=== PATIENT | female | born 1930 | race Caucasian/White ===

== ENCOUNTER 2017-02-23 04:54 | Inpatient (IN) | payer MEDICARE, BC ==
[~2017-02-23] VITALS: Ht 157.5 cm; Wt 61.2 kg
[2017-02-23] MEDS ORDERED: ACETAMINOPHEN ES 500 MG TABLET PO ONE (05:15)
[2017-02-23] MEDS ORDERED: TDAP DIPH,PERTUSS,TET VAC/PF 0.5 ML DISP.SYRIN IM ONE ×2 (05:15→05:23)
--- NOTE | 2017-02-23 05:18 | NUR ---
PATIENT BROUGHT IN BY RESCUE FROM [facility]. PATIENT STATES SHE WAS TRYING TO USE RESTROOM AT HOME GOT DIZZY AND HIT HEAD ON BATHROOM COUNTER WHICH CAUSE A NOSE BLEED,LAC ON BRIDGE OF NOSE AND SWOLLEN NOSE. PATIENT UPON ARRIVAL A/OX3 BUT SLOW TO RESPONDE.
[2017-02-23] MEDS ORDERED: ACETAMINOPHEN ES 500 MG TABLET ONE (05:23)
--- NOTE | 2017-02-23 05:27 | NUR ---
PATIENT UNABLE TO RECALL MEDICATIONS NAME AND DOSAGES AT THIS TIME
[2017-02-23 05:33] LABS: BASOPHILS % (AUTO) 0.2 % (0.0-2.0); EOSINOPHILS # (AUTO) 0.2 K/uL (0.0-0.7); EOSINOPHILS % (AUTO) 2.8 % (0.0-7.0); HEMATOCRIT 34.6 % (37-47); HEMOGLOBIN 11.3 G/DL (12.0-16.0); MEAN CORPUSCULAR HEMOGLOBIN 29.7 UUG (27.0-31.0); MEAN CORPUSCULAR HGB CONC 33 g/dL (32.0-37.0); MEAN CORPUSCULAR VOLUME 91.5 FL (81.0-99.0); MONOCYTES # (AUTO) 0.5 K/UL (0.1-1.30); MONOCYTES % (AUTO) 8.5 % (0.0-11.0); NEUTROPHILS # (AUTO) 4.1 K/UL (1.8-8.9); NEUTROPHILS % (AUTO) 71.5 % (38.5-71.5); PLATELET COUNT (AUTO) 152 K/UL (150-450); RED BLOOD CELL COUNT(AUTO) 3.79 MIL/UL (4.2-5.4); RED CELL DISTRIBUTION WIDTH 13.8 % (11.5-14.5); WHITE BLOOD COUNT (AUTO) 5.8 K/UL (4.0-11.2)
--- NOTE | 2017-02-23 05:35 | NUR ---
CALLED PATIENT'S SON SEVERAL TIMES TO GET HX AND MEDICATION LIST OF PATIENT BUT UNSUCCESSFUL TO REACH SON. LEFT MESSAGE WITH CALL BACK NUMBER
[2017-02-23 05:37] LABS: CALCIUM 9.2 mg/dL (8.5-10.1); CREATININE 0.9 mg/dL (0.6-1.3); POTASSIUM 4.1 mmol/L (3.5-5.1)
[2017-02-23 05:49] LABS: ALBUMIN 3.4 g/dL (3.4-5.0); BILIRUBIN,DIRECT 0.1 mg/dL (0.0-0.2); BILIRUBIN,TOTAL 0.3 mg/dL (0.2-1.0); TOTAL PROTEIN, SERUM 6.7 g/dL (6.4-8.2)
[2017-02-23 06:42] VITALS: BP 126/73
--- NOTE | 2017-02-23 07:00 | NUR ---
PATIENT RECEIVED IN SAFE AND STABLE CONDITION, NO S/S OF DISTRESS NOTED. C/O OF PAIN OF HER NOSE DUE TO TRAUMA. PATIENT IS A/O X3, ADMISSION ASSESSMENT WERE DONE AND CHARTED. RADIATOR CLEANER ON PLACE. PHOTOS WERE TAKEN AND PLACED ON CHART. WILL CONTINUE MONITORING,
[2017-02-23] MEDS ORDERED: MAGNESIUM HYDROXIDE 30 ML LIQUID UDC PO PRN (07:15)
[2017-02-23] MEDS ORDERED: ONDANSETRON 4 MG/2 ML VIAL IV PRN (07:15)
[2017-02-23] MEDS ORDERED: ZOLPIDEM 5 MG TABLET PO PRN (07:15)
[2017-02-23] MEDS ORDERED: Z GUARD REMEDY PASTE 57 GM TUBE TOP PRN (07:15)
[2017-02-23] MEDS: HYDROCODONE/APAP 5-325MG TABLET PO PRN (08:30)
[2017-02-23 08:53] VITALS: BP 107/58
[2017-02-23 08:55] VITALS: BP_SYST 122; BP_SYST 125; BP_DIAS 62; BP_DIAS 67
--- NOTE | 2017-02-23 09:00 | NUR ---
PATIENT BECOMING ROJAS ANXIOUS AND RESTLESS. C/O OF HAVING A HARD TIME BREATHING WITH HER MOUTH. SHE KEEPS REMOVING HER NOSE CLAMP. MEDICATIONS WAS ADMINISTERED FOR PAIN. SON AUDREY WILL BRING A LIST OF HOME MEDICATIONS. IV WAS PULLED OUT. PATIENT CANNOT STILL STILL, SHE KEEP SITTING AND GETTIG UP EVERY MINUTE, STATING SHE WANTS TO GO HOME. WILL CONTINUE MONITORING.
[2017-02-23] MEDS: IV NS 1000 ML 1,000 ML IV PRN (09:45)
[2017-02-23 11:01] VITALS: BP 107/64
[2017-02-23] MEDS: LORAZEPAM 0.5 MG TABLET PO PRN (14:29)
--- NOTE | 2017-02-23 15:00 | NUR ---
DR MANUEL CALLED FOR NASAL FRACTURE CONSULT, , FOR DR MARTINEZ, FOR PATIENT CHRISTINA RUIZ. SPOKE WITH MARC STATES SHE WILL NOTIFY DR MANUEL OF CONSULT
[2017-02-23 15:08] VITALS: BP 128/78
[2017-02-23] MEDS ORDERED: FURO20TA4 PO (16:14)
[2017-02-23] MEDS ORDERED: SIMV20TA6 PO (16:14)
[2017-02-23] MEDS ORDERED: SPIR25TA4 PO (16:14)
[2017-02-23] MEDS ORDERED: METO-302 PO (16:14)
[2017-02-23] MEDS ORDERED: LEVO50TA8 PO (16:14)
[2017-02-23] MEDS ORDERED: RAMI2.5C PO (16:14)
[2017-02-23] MEDS ORDERED: PARO10TA3 PO (16:14)
[2017-02-23] MEDS ORDERED: METF500T4 PO (16:14)
--- NOTE | 2017-02-23 17:52 | NUR ---
RETURN CALL FROM DR MANUEL STATES HE WILL SEE PATIENT IN THE AM 02/24/17
--- NOTE | 2017-02-23 17:54 | NUR ---
PATIENT CONTINUE BECOMING VERY RESTLESS AND ANXIOUS. CONTINUE REMOVING HER NOSE CLAMP AND BLEEDING. EXTREME CHANGE OF MENTAL STATUS SINCE THE MORNING. DAUGHTER STATED THAT SHE HAVE NEVER BEEN LIKE THAT BEFORE. DR. MARTINEZ AND PA AWARE OF HER CHANGE OF MENTAL STATUS. HE SAID NO TO GIVEN ATIVAN OR NORCO, CAUSE IT COULD MAKE HER STATUS WORST. MEDICATION RECONCILIATION WAS DONE. CBC WILL BE DONE 1900 MD ORDERED. SITTER 1:1 FOR SAFETY. WILL CONTINUE MONITORING.
[2017-02-23] MEDS: METFORMIN HCL 500 MG TABLET PO SCH (18:42)
--- NOTE | 2017-02-23 19:15 | NUR ---
MENTAL STATUS KEEP CHANGING, HALLUCINATIONS NOTED, PATIENT IS TRYING TO GRAB THINGS THAT ARE NOT THERE. SPEAKING INCOHERENTLY AT TIMES. VERY RESTLESS AND SOMETIMES COMBATIVE. HALLIE PEREZ AND DR. MARTINEZ AWARE. REPORT WAS GIVEN TO ABIEL.
[2017-02-23 19:48] LABS: BASOPHILS # (AUTO) 0.2 K/uL (0.0-8.0); BASOPHILS % (AUTO) 3.2 % (0.0-2.0); EOSINOPHILS # (AUTO) 0.1 K/uL (0.0-0.7); EOSINOPHILS % (AUTO) 1.8 % (0.0-7.0); HEMATOCRIT 32.7 % (37-47); HEMOGLOBIN 10.6 G/DL (12.0-16.0); LYMPHOCYTES # (AUTO) 1.1 K/UL (0.8-4.8); LYMPHOCYTES % (AUTO) 16.7 % (20.5-51.5); MEAN CORPUSCULAR HEMOGLOBIN 29.4 UUG (27.0-31.0); MEAN CORPUSCULAR HGB CONC 32 g/dL (32.0-37.0); MEAN CORPUSCULAR VOLUME 91.1 FL (81.0-99.0); MONOCYTES # (AUTO) 0.6 K/UL (0.1-1.30); MONOCYTES % (AUTO) 8.6 % (0.0-11.0); NEUTROPHILS # (AUTO) 4.9 K/UL (1.8-8.9); NEUTROPHILS % (AUTO) 69.7 % (38.5-71.5); PLATELET COUNT (AUTO) 157 K/UL (150-450); RED BLOOD CELL COUNT(AUTO) 3.59 MIL/UL (4.2-5.4); RED CELL DISTRIBUTION WIDTH 13.6 % (11.5-14.5); WHITE BLOOD COUNT (AUTO) 6.9 K/UL (4.0-11.2)
--- NOTE | 2017-02-23 20:00 | NUR ---
patient extremely confused,hostile ,hallucinated,try to hit sitter ,sitting up on aniya chair,continue shouting,anxious wants to go home.unable to start iv at this time, tele a pacing,bruising noted to face,small nose bleed noted,patient keep on removing ice pack and dressing.
[2017-02-23] MEDS ORDERED: PARO10TA26 PO (20:07)
[2017-02-23] MEDS: SIMVASTATIN 20 MG TABLET PO SCH (21:45)
[2017-02-23] MEDS: ACETAMINOPHEN 325 MG TABLET PO PRN (21:45)
[2017-02-23 23:27] VITALS: BP 120/69
--- NOTE | 2017-02-23 23:55 | NUR ---
patient very agitated ,out of control,security at bedside,Dr. Nelson notified, Haldol 0.5 mg im medicated.
[2017-02-24] MEDS ORDERED: HALOPERIDOL LACTATE 5 MG/1 ML VIAL IM ONE (01:00)
[2017-02-24] MEDS: LEVOTHYROXINE SODIUM 50 MCG TABLET PO SCH (06:11)
[2017-02-24 06:41] LABS: ALBUMIN 3.5 g/dL (3.4-5.0); BILIRUBIN,TOTAL 0.8 mg/dL (0.2-1.0); CALCIUM 9.3 mg/dL (8.5-10.1); CREATININE 0.8 mg/dL (0.6-1.3); MAGNESIUM 1.8 mg/dL (1.8-2.4); PHOSPHOROUS 3.1 mg/dL (2.5-4.9); TOTAL PROTEIN, SERUM 6.5 g/dL (6.4-8.2)
[2017-02-24] MEDS: PANTOPRAZOLE SODIUM 40 MG TABLET.DR PO SCH (07:29)
--- NOTE | 2017-02-24 07:45 | NUR ---
Confused, oriented to name, agitated and restless, want to go home, ambulating outside of room with sitter. Redirected and placed on the gerichair. Calm and cooperative after.
[2017-02-24 07:59] LABS: EOSINOPHILS # (AUTO) 0.1 K/uL (0.0-0.7); EOSINOPHILS % (AUTO) 0.8 % (0.0-7.0); HEMATOCRIT 30.8 % (37-47); HEMOGLOBIN 10.2 G/DL (12.0-16.0); LYMPHOCYTES # (AUTO) 1.1 K/UL (0.8-4.8); MEAN CORPUSCULAR HEMOGLOBIN 30.3 UUG (27.0-31.0); MEAN CORPUSCULAR HGB CONC 33 g/dL (32.0-37.0); MONOCYTES # (AUTO) 0.6 K/UL (0.1-1.30); MONOCYTES % (AUTO) 8.7 % (0.0-11.0); NEUTROPHILS # (AUTO) 5.2 K/UL (1.8-8.9); NEUTROPHILS % (AUTO) 75.5 % (38.5-71.5); PLATELET COUNT (AUTO) 141 K/UL (150-450); RED BLOOD CELL COUNT(AUTO) 3.38 MIL/UL (4.2-5.4); RED CELL DISTRIBUTION WIDTH 13.5 % (11.5-14.5); WHITE BLOOD COUNT (AUTO) 7.1 K/UL (4.0-11.2)
[2017-02-24] MEDS: METFORMIN HCL 500 MG TABLET PO SCH ×2 (08:55→17:55)
[2017-02-24] MEDS: RAMIPRIL 2.5 MG CAPSULE PO SCH (08:56)
[2017-02-24] MEDS: SPIRONOLACTONE 25 MG TABLET PO SCH (08:56)
[2017-02-24] MEDS: FUROSEMIDE 20 MG TABLET PO SCH (08:56)
[2017-02-24] MEDS: METOPROLOL SUCCINATE XL 25 MG TAB.SR.24H PO SCH (08:57)
[2017-02-24] MEDS: PAROXETINE HCL 10 MG TABLET PO SCH (08:57)
[2017-02-24] MEDS ORDERED: PAROXETINE HCL 10 MG TABLET PO SCH (09:00)
--- NOTE | 2017-02-24 10:30 | NUR ---
[facility] house initiated, cooperative
[2017-02-24] MEDS: ACETAMINOPHEN 325 MG TABLET PO PRN ×2 (11:05→21:18)
[2017-02-24 11:10] VITALS: BP 106/69
--- NOTE | 2017-02-24 13:00 | NUR ---
Son at bedside, discussed patient's condition and plan of care. Patient calm and cooperative. Restarted saline to right forearm. IVF restarted.
--- NOTE | 2017-02-24 15:34 | NUR ---
Sleeping. son at bedside
[2017-02-24 15:35] VITALS: BP 109/61
--- NOTE | 2017-02-24 18:18 | NUR ---
Sitting on the chair, comfortable. Son and sitter at bedside
[2017-02-24 20:00] VITALS: BP_SYST 117; BP_SYST 120; BP_DIAS 65
--- NOTE | 2017-02-24 20:00 | NUR ---
PATIENT REMAINS CONFUSED BUT MORE CALM AND COOPERATIVE,SON VISITING AT BEDSIDE,VITAL SIGNS STABLE, PATIENT DENIES PAIN, NO DIZZINESS, NO BLEEDING NOTED.AMBULATE WITH ASSISTANCE.
[2017-02-24] MEDS: SIMVASTATIN 20 MG TABLET PO SCH (21:18)
--- NOTE | 2017-02-24 23:20 | NUR ---
PATIENT REQUESTED FOR SLEEPING PILL,STATED I WANT TO SLEEP,FEEL TIRED,AFTER COMFORT MEASURE PROVIDED,PATIENT STILL CAN NOT SLEEP, AMBIEN 5 MG PO ADMIN,ASSISTED PATIENT BACK IN BED, MADE COMFORTABLE.
[2017-02-25] MEDS: LORAZEPAM 0.5 MG TABLET PO PRN ×2 (03:04→17:24)
--- NOTE | 2017-02-25 03:05 | NUR ---
patient has been sleeping then woke up, very agitated, shouting,screaming,hitting,try to walk out of the room,hallucinating,ativan 0.5 mg po admin charged RN notified and agree to give medication as ordered.patient calm down and relax after medication given.continue closely monitor,patient was noted walk with very unsteady gait.
[2017-02-25 04:00] VITALS: BP 127/77
--- NOTE | 2017-02-25 06:32 | NUR ---
patient sleeping est 6 hrs,with period of confused and agitation,reassurance ,needs attended,safety precautions maintained,1:1 sitter .
[2017-02-25] MEDS: PANTOPRAZOLE SODIUM 40 MG TABLET.DR PO SCH (06:39)
[2017-02-25] MEDS: LEVOTHYROXINE SODIUM 50 MCG TABLET PO SCH (06:39)
[2017-02-25] MEDS: IV NS 1000 ML 1,000 ML IV PRN (06:49)
[2017-02-25 07:27] LABS: CALCIUM 9.4 mg/dL (8.5-10.1); POTASSIUM 4.5 mmol/L (3.5-5.1)
[2017-02-25 07:44] LABS: EOSINOPHILS # (AUTO) 0.1 K/uL (0.0-0.7); EOSINOPHILS % (AUTO) 2.2 % (0.0-7.0); HEMATOCRIT 31.8 % (37-47); HEMOGLOBIN 10.6 G/DL (12.0-16.0); LYMPHOCYTES # (AUTO) 1.4 K/UL (0.8-4.8); MEAN CORPUSCULAR HEMOGLOBIN 30.1 UUG (27.0-31.0); MEAN CORPUSCULAR HGB CONC 33 g/dL (32.0-37.0); MONOCYTES # (AUTO) 0.5 K/UL (0.1-1.30); MONOCYTES % (AUTO) 8.2 % (0.0-11.0); NEUTROPHILS # (AUTO) 4.3 K/UL (1.8-8.9); NEUTROPHILS % (AUTO) 67.6 % (38.5-71.5); PLATELET COUNT (AUTO) 152 K/UL (150-450); RED BLOOD CELL COUNT(AUTO) 3.53 MIL/UL (4.2-5.4); RED CELL DISTRIBUTION WIDTH 13.2 % (11.5-14.5); WHITE BLOOD COUNT (AUTO) 6.3 K/UL (4.0-11.2)
[2017-02-25] MEDS: FUROSEMIDE 20 MG TABLET PO SCH (08:52)
[2017-02-25] MEDS: PAROXETINE HCL 10 MG TABLET PO SCH (08:53)
[2017-02-25] MEDS: METFORMIN HCL 500 MG TABLET PO SCH ×2 (08:53→17:24)
[2017-02-25] MEDS: METOPROLOL SUCCINATE XL 25 MG TAB.SR.24H PO SCH (08:54)
[2017-02-25] MEDS: RAMIPRIL 2.5 MG CAPSULE PO SCH (08:55)
[2017-02-25] MEDS: SPIRONOLACTONE 25 MG TABLET PO SCH (08:56)
[2017-02-25 11:01] VITALS: BP 118/73
[2017-02-25] MEDS: HYDROCODONE/APAP 5-325MG TABLET PO PRN ×2 (14:30→20:35)
--- NOTE | 2017-02-25 18:03 | NUR ---
PATIENT HAVE BEEN IN BED AWAKE. NO S/S OF DISTRESS NOTED. C/OF PAIN DURING THE AFTERNOON, MEDICATED ORDERED. FAMILY MEMBERS AT THE BEDSIDE DURING THE DAY. SITTER FOR SAFETY. PATIENT BECOMES ANXIOUS AND NERVOUS AT TIMES PER PRIYA COLLINS REPORT. NO NOSE BLEEDING NOTED. IV STILL INTACT. SAFETY AND COMFORT PROVIDED. WILL CONTINUE MONITORING.
--- NOTE | 2017-02-25 19:16 | NUR ---
REPORT GIVEN TO DARWIN BEEBE.
[2017-02-25 20:00] VITALS: BP_SYST 100; BP_SYST 128; BP_DIAS 64; BP_DIAS 77
--- NOTE | 2017-02-25 20:00 | NUR ---
PATIENT SITTING UP IN CHAIR,APPEARS RELAX,ALERT, ANSWER APPROPRIATE QUESTIONS,COOPERATIVE,SITTER AT BEDSIDE,SAFETY PRECAUTIONS
[2017-02-25] MEDS: SIMVASTATIN 20 MG TABLET PO SCH (20:33)
--- NOTE | 2017-02-25 21:10 | NUR ---
PATIENT AMBULATING ON [address] ,USING WALKER WITH SITTER,NO DIZZINESS NOTED,INCONTINENCE OF STOOL :ACCIDENTLY,PATIENT GOT VERY UPSET,ASSISTED BACK TO BED.
--- NOTE | 2017-02-25 22:00 | NUR ---
patient refused iv fluid,stated she will drink more fluid,and can not sleep with iv going on.
[2017-02-26] MEDS: LORAZEPAM 0.5 MG TABLET PO PRN ×3 (02:35→14:28)
--- NOTE | 2017-02-26 02:35 | NUR ---
patient woke up very confused ,restless,scratching,hitting staffs,[place],c/o feels nausea,Ativan0. 5 mg po given for agitation and Zofran iv admin for nausea.
[2017-02-26 04:21] VITALS: BP 100/82
--- NOTE | 2017-02-26 06:00 | NUR ---
patient sitting up on chair ,drowsy,sitter at bedside for safety,needs attended,UA. sent to lab
[2017-02-26 07:14] LABS: *BILIRUBIN,URIN NEGATIVE (NEGATIVE); *BLOOD, URINE NEGATIVE (NEGATIVE); *CLARITY,URINE SLIGHTLY CLOUDY (CLEAR); *COLOR,URINE YELLOW (YELLOW); *KETONES,URINE NEGATIVE (NEGATIVE); *PROTEIN,URINE NEGATIVE (NEGATIVE); *UROBILINOGEN,URINE 0.2 E.U./dl (NORMAL); LEUKOCYTE ESTERASE ,URINE 2+ (NEGATIVE); NITRITE, URINE NEGATIVE (NEGATIVE); UGLUCOSE NEGATIVE (NEGATIVE)
[2017-02-26 07:25] LABS: BACTERIA,URINE FEW /HPF (NONE SEEN); RBC,URINE 0-3 /HPF (0-3); SQUAMOUS EPITHELIAL CELL,UR FEW /HPF (NONE SEEN)
[2017-02-26] MEDS: PANTOPRAZOLE SODIUM 40 MG TABLET.DR PO SCH (07:31)
[2017-02-26] MEDS: METFORMIN HCL 500 MG TABLET PO SCH ×2 (07:31→16:54)
[2017-02-26] MEDS: LEVOTHYROXINE SODIUM 50 MCG TABLET PO SCH (07:31)
[2017-02-26] MEDS: PAROXETINE HCL 10 MG TABLET PO SCH (08:21)
[2017-02-26] MEDS: SPIRONOLACTONE 25 MG TABLET PO SCH (08:21)
[2017-02-26] MEDS: FUROSEMIDE 20 MG TABLET PO SCH (08:21)
[2017-02-26] MEDS: RAMIPRIL 2.5 MG CAPSULE PO SCH (08:22)
[2017-02-26 08:30] VITALS: BP 104/45
--- NOTE | 2017-02-26 08:30 | NUR ---
AWAKE CONFUSED FORGETFUL UP AMB WELL ON FALL PRECAUTION BED ALARM ON AND SITTER 1:1 AT BEDSIDE CALL LIGHT WITHIN REACH AND INSTRUCTION TO CALL WHEN NEEDED
[2017-02-26] MEDS: HYDROCODONE/APAP 5-325MG TABLET PO PRN ×2 (08:53→14:28)
[2017-02-26] MEDS: METOPROLOL SUCCINATE XL 25 MG TAB.SR.24H PO SCH (10:00)
--- NOTE | 2017-02-26 10:30 | NUR ---
FAMILY AT BEDSIDE CLOSED OBSERVATION NO PAIN AT THIS TIME
[2017-02-26 11:01] LABS: THYROID STIMULATING HORMONE 3.231 mIU/mL (0.358-3.740)
[2017-02-26 12:00] VITALS: BP 116/62
--- NOTE | 2017-02-26 13:00 | NUR ---
EAT LUNCH MOD AMT NO AGITATION AT THIS TIME STATE PAIN MED HELP TO RELIEF PAIN
--- NOTE | 2017-02-26 14:28 | NUR ---
PATIENT WAKE UP AND VERY CONFUSED WANT TO GO HOME MED PRN FOR ANXIETY AND PAIN GIVEN AND PO FLD GIVE AMANDA MOD AMT REFUSED TO EAT LUNCH
--- NOTE | 2017-02-26 14:35 | NUR ---
WALKING IN HALLWAY. VERY CONFUSED, AGITATED & DEMENTED. WANTS TO LEAVE HOSPITAL. ASSISTED TO W/C, & TAKEN TO ROOM. REFUSING TO GET IN BED. COMBATIVE, KICKING, HITTING & SCRATCHING STAFF. PHYSICALLY & VERBALLY ABUSIVE. DR. MARTINEZ CALLED. ORDERS RECEIVED.
--- NOTE | 2017-02-26 14:50 | NUR ---
PATIENT WAS VERY AGITATION ASSIST TO UP IN CHAIR AND DR MARTINEZ WAS CALL FOR MEDICATION AND MESSAGE LEFT
[2017-02-26 15:00] VITALS: BP 109/35
[2017-02-26] MEDS ORDERED: HALOPERIDOL 5 MG TABLET PO ONE (15:15)
--- NOTE | 2017-02-26 15:15 | NUR ---
DR MARTINEZ WAS CALL AGAIN AND PATIENT CONDITION AGITATION INFORM NEW ORDER IN CHART TO GIVE HALDOL
--- NOTE | 2017-02-26 16:30 | NUR ---
PATIENT WAS CALM DOWN ASSIST BACK TO BED RESTING WELL NO RESPIRATORY DISTRESS
--- NOTE | 2017-02-26 17:00 | NUR ---
NO ACUTE DISTRESS OR SOB PAIN UNDER CONTROL SAFETY MEASURE PROVIDED SITTER1:1 AND BED ALARM POWER GENERATION TURBINE ROOM OPERATOR LIGHT WITHIN REACH CLOSED OBSERVATION STABLE CONDITION
--- NOTE | 2017-02-26 18:30 | NUR ---
AWAKE EAT DINNER 30% AT THIS TIME AND THEN START VERY AGITATION TRY TO OOB STATE WANT TO GO OUT DR MARTINEZ WAS CALL AND MED GEODANIELITO GIVEN X1 ORDER CLOSED OBSERVATION ASSIST UP IN CHAIR AT THIS TIME
[2017-02-26] MEDS ORDERED: ZIPRASIDONE MESYLATE 20 MG VIAL IM ONE (18:45)
--- NOTE | 2017-02-26 19:20 | NUR ---
RESTING SITTER 1:1 FOR SAFETY CONTINUE
--- NOTE | 2017-02-26 19:45 | NUR ---
PT RESTING, DOZING OFF, CALM AT THIS TIME, AWAKENS TO NAME. NO ACUTE DISTRESS NOTED. EVEN AND NONLABORED BREATHING OBSERVED. SAFETY MEASURES IN PLACE. 1:1 SITTER FOR SAFETY. WILL CONTINUE TO MONITOR.
[2017-02-26 20:00] VITALS: BP 101/64
[2017-02-26] MEDS: SIMVASTATIN 20 MG TABLET PO SCH (20:08)
[2017-02-27] MEDS: IV NS 1000 ML 1,000 ML IV PRN ×2 (03:14→17:56)
[2017-02-27 04:46] VITALS: BP 110/69
[2017-02-27] MEDS: PANTOPRAZOLE SODIUM 40 MG TABLET.DR PO SCH (06:04)
[2017-02-27] MEDS: LEVOTHYROXINE SODIUM 50 MCG TABLET PO SCH (06:04)
[2017-02-27 07:25] LABS: BASOPHILS # (AUTO) 0.1 K/uL (0.0-8.0); BASOPHILS % (AUTO) 0.9 % (0.0-2.0); EOSINOPHILS # (AUTO) 0.2 K/uL (0.0-0.7); EOSINOPHILS % (AUTO) 2.5 % (0.0-7.0); HEMATOCRIT 32.3 % (37-47); HEMOGLOBIN 10.6 G/DL (12.0-16.0); LYMPHOCYTES # (AUTO) 0.9 K/UL (0.8-4.8); LYMPHOCYTES % (AUTO) 14.9 % (20.5-51.5); MEAN CORPUSCULAR HEMOGLOBIN 29.7 UUG (27.0-31.0); MEAN CORPUSCULAR HGB CONC 33 g/dL (32.0-37.0); MEAN CORPUSCULAR VOLUME 90.7 FL (81.0-99.0); MONOCYTES # (AUTO) 0.5 K/UL (0.1-1.30); MONOCYTES % (AUTO) 8.6 % (0.0-11.0); NEUTROPHILS # (AUTO) 4.7 K/UL (1.8-8.9); NEUTROPHILS % (AUTO) 73.1 % (38.5-71.5); PLATELET COUNT (AUTO) 143 K/UL (150-450); RED BLOOD CELL COUNT(AUTO) 3.56 MIL/UL (4.2-5.4); RED CELL DISTRIBUTION WIDTH 13.9 % (11.5-14.5); WHITE BLOOD COUNT (AUTO) 6.4 K/UL (4.0-11.2)
[2017-02-27 07:29] LABS: CALCIUM 8.8 mg/dL (8.5-10.1); CREATININE 1.1 mg/dL (0.6-1.3); POTASSIUM 4.2 mmol/L (3.5-5.1)
[2017-02-27 08:00] VITALS: BP 120/57
--- NOTE | 2017-02-27 08:00 | NUR ---
AWAKE CONFUSED FORGETFUL BUT COOPERATE AT THIS TIME NO SOB OR PAIN WONG BUT STILL VERY WEAK ON ASPIRATION AND FALL PRECAUTION CALL LIGHT WITHIN REACH AND SITTER 1:1 AT BEDSIDE EAT BREAKFAST MOD AMT CLOSED OBSERVATION
[2017-02-27] MEDS: SPIRONOLACTONE 25 MG TABLET PO SCH (08:19)
[2017-02-27] MEDS: PAROXETINE HCL 10 MG TABLET PO SCH (08:19)
[2017-02-27] MEDS: FUROSEMIDE 20 MG TABLET PO SCH (08:19)
[2017-02-27] MEDS: METOPROLOL SUCCINATE XL 25 MG TAB.SR.24H PO SCH (08:19)
[2017-02-27] MEDS: METFORMIN HCL 500 MG TABLET PO SCH ×2 (08:19→17:34)
[2017-02-27] MEDS: LORAZEPAM 0.5 MG TABLET PO PRN (08:20)
[2017-02-27] MEDS: HYDROCODONE/APAP 5-325MG TABLET PO PRN (08:20)
[2017-02-27] MEDS: RAMIPRIL 2.5 MG CAPSULE PO SCH (08:22)
--- NOTE | 2017-02-27 10:00 | NUR ---
AMB WITH PT IN THE [address] COOPERATE WELL AND DR MARTINEZ SEE PATIENT AND LAB RESULT THIS AM NEW ORDER IN CHART FAMILY AT BEDSIDE ,PATIENT WAS CALM NO AGITATION NO PAIN
--- NOTE | 2017-02-27 14:00 | NUR ---
[facility] BECAUSE FROM RECREATION WORKER PATIENT DOES NOT HAVE FOREST EXAMINER AT BEDSIDE TODAY AT SNF FAMILY WAS AWARE
--- NOTE | 2017-02-27 14:30 | NUR ---
DR GONZALEZ,A SEE PATIENT REGARDING PYCH CONSULT AND NEW MED ORDER
--- NOTE | 2017-02-27 14:47 | NUR ---
The patient will be discharged today to the [facility] [ ; [address] [place] [id number]] via [facility]. His son, Keith [ ], requested for the placement and arranged with [facility] a caregiver to be with her from 3:00 p.m. to 11:00 p.m. when she sundowns. Alexsandra from [facility], confirmed that they will admit the patient today. Her RN, Amanda, is aware of her discharge plan and will call the facility for the report.
--- NOTE | 2017-02-27 15:00 | NUR ---
D/C INSTRUCTION GIVEN TO PATIENT AND FAMILY ADAIR /SON ,VERBALIZES UNDERSTAND
[2017-02-27] MEDS: DIVALPROEX SPRINKLE 125 MG CAP.SPRINK PO SCH ×2 (15:43→20:14)
[2017-02-27 16:00] VITALS: BP 122/58
--- NOTE | 2017-02-27 17:00 | NUR ---
MOST OF THE DAY SHE WAS QUIET AND COOPERATE WELL STABLE HEMODYNAMIC SAFETY MEASURE PROVIDED SITTER 1:1 AT BEDSIDE AND CALL LIGHT WITHIN REACH
--- NOTE | 2017-02-27 19:45 | NUR ---
RECEIVED PATIENT SITTING UP IN CHAIR AWAKE CONFUSED AND FORGETFUL. COOPERATIVE WITH CARE AT THIS TIME. NO S/S OF PAIN OR RESPIRATORY DISTRESS OBSERVED/REPORTED. REMAINS ON ASPIRATION AND FALL PRECAUTION. 1:1 SITTER FOR CLOSE OBSERVATION. CALL LIGHT WITHIN REACH. WILL CONTINUE TO MONITOR.
[2017-02-27 20:00] VITALS: BP 123/70
[2017-02-27] MEDS: SIMVASTATIN 20 MG TABLET PO SCH (20:14)
[2017-02-28 05:59] VITALS: BP 125/72
[2017-02-28] MEDS: LEVOTHYROXINE SODIUM 50 MCG TABLET PO SCH (06:30)
[2017-02-28] MEDS: PANTOPRAZOLE SODIUM 40 MG TABLET.DR PO SCH (06:30)
[2017-02-28 06:42] LABS: BASOPHILS % (AUTO) 0.1 % (0.0-2.0); EOSINOPHILS # (AUTO) 0.2 K/uL (0.0-0.7); HEMATOCRIT 29.8 % (37-47); HEMOGLOBIN 9.9 G/DL (12.0-16.0); LYMPHOCYTES # (AUTO) 1.1 K/UL (0.8-4.8); LYMPHOCYTES % (AUTO) 16.7 % (20.5-51.5); MEAN CORPUSCULAR HEMOGLOBIN 30.1 UUG (27.0-31.0); MEAN CORPUSCULAR HGB CONC 33 g/dL (32.0-37.0); MEAN CORPUSCULAR VOLUME 90.3 FL (81.0-99.0); MONOCYTES # (AUTO) 0.5 K/UL (0.1-1.30); MONOCYTES % (AUTO) 7.7 % (0.0-11.0); NEUTROPHILS # (AUTO) 4.8 K/UL (1.8-8.9); NEUTROPHILS % (AUTO) 72.5 % (38.5-71.5); PLATELET COUNT (AUTO) 151 K/UL (150-450); RED CELL DISTRIBUTION WIDTH 13.6 % (11.5-14.5); WHITE BLOOD COUNT (AUTO) 6.6 K/UL (4.0-11.2)
--- NOTE | 2017-02-28 06:45 | NUR ---
PT SLEPT INTERMITTENTLY THROUGH THE NIGHT. NO ACUTE DISTRESS PER SHIFT. NO BEHAVIORS NOTED. 1:1 SITTER AT BEDSIDE AT ALL TIMES FOR SAFETY. CALL LIGHT IN REACH. SAFETY MAINTAINED.
[2017-02-28 07:04] LABS: CALCIUM 8.8 mg/dL (8.5-10.1); CREATININE 0.9 mg/dL (0.6-1.3); POTASSIUM 4.1 mmol/L (3.5-5.1)
[2017-02-28] MEDS: DIVALPROEX SPRINKLE 125 MG CAP.SPRINK PO SCH (08:20)
[2017-02-28] MEDS: ACETAMINOPHEN 325 MG TABLET PO PRN (08:21)
[2017-02-28] MEDS: METFORMIN HCL 500 MG TABLET PO SCH (08:21)
[2017-02-28] MEDS: FUROSEMIDE 20 MG TABLET PO SCH (08:21)
[2017-02-28] MEDS: METOPROLOL SUCCINATE XL 25 MG TAB.SR.24H PO SCH (08:21)
[2017-02-28] MEDS: SPIRONOLACTONE 25 MG TABLET PO SCH (08:21)
[2017-02-28] MEDS: PAROXETINE HCL 10 MG TABLET PO SCH (08:21)
[2017-02-28 08:22] VITALS: BP 116/66
[2017-02-28] MEDS: RAMIPRIL 2.5 MG CAPSULE PO SCH (08:22)
--- NOTE | 2017-02-28 08:30 | NUR ---
AWAKE COOPERATE EAT BREAKFAST WELL PO FLD ENC AMANDA MOD AMT ON FALL PRECAUTION SITTER 1:1 AT BEDSIDE AND CALL LIGHT WITHIN REACH REMIND TO CALL WHEN NEED
--- NOTE | 2017-02-28 10:00 | NUR ---
D/C INSTRUCTION REGARDING F/U WITH OWN PMD AND PSYCH MD AT SNF AND CONTINUE MEDICINE ORDER EXPLAINED TO PATIENT AND ALF /SON ,VERBALIZES UNDERSTAND AND SIGNS D/C SHEET COPY OF D./C INSTRUCTION GAVE TO HER SON ONE COPY REQUEST HL DISCONTINUE PRIOR D/C HOME TODAY
--- NOTE | 2017-02-28 10:15 | NUR ---
REGARDING PT SON ALF STATE THAT DOES NOT SEE PMD OR PSYCH MD SEE HIS MOTHER ,DR MORALES WAS INFORM AND [facility] WAS CALL AND LEFT TEL OF PATIENT SON ALF TO HAVE DR GONZALEZ CALL HIM WHEN HE IS AVAILABLE AND PT SON ALF WAS INFORM OF INFORMATION ,UNDERSTAND BUT REFUSED TO SIGNS D/C SHEET AND STATE HE IS NOT DOPA AND PATIENT WAS UNABLE TO SIGNS /NOTED
--- NOTE | 2017-02-28 10:30 | NUR ---
REPORT GIVEN TO NURSE SAVANNAH VIA TEL AND FAX MAR TO HER REQUEST
--- NOTE | 2017-02-28 11:24 | NUR ---
THIS RECORDER HAD A LONG CONVERSATION WITH PATIENT CHRISTINA RUIZ'S SON ALF RUIZ., STATES THAT HE HAS BEEN AT HIS MOTHERS BEDSIDE SINCE Monday02/24/17 AND HAS NOT BEEN ABLE TO SPEAK WITH ANY OF HIS MOTHER.S DOCTORS. THIS RECORDER INFORMED ALF THAT I WOULD HAVE THE MEDICAL DOCTOR ROSTER CLERK TODAY DR BRIONES SPEAK WITH HIM SOON HE ROUND
--- NOTE | 2017-02-28 11:50 | NUR ---
ALF AVILES I CAN NOT WAITTING FOR AMBULANCE TO PICK HER UP AT [facility] TODAY I WANT TO TAKE HER BY MYSELF ,EXPLAINED TO HIM THAT HE HAD TO RESPONSE OF HIS MOTHER AND MAY HAVE RISK S THAT CAN HAPPEN ,STATE UNDERSTAND BUT STILL WANT TO DO HIMSELF
--- NOTE | 2017-02-28 12:00 | NUR ---
PATIENT SON ALF STATE HE WANT HER TO HAVE LUNCH BEFORE GOING ,EXPLAINED TO HIM THAT LUNCH WILL SERVE SOON
--- NOTE | 2017-02-28 12:15 | NUR ---
ALF STATE I CHANGE MY MIND AND WANT TO GO NOW REFUSED TO TAKE D/C SHEET THAT SUPPOSE TO GO WITH HER TO SNF BUT HE HAVE COPY OF D/C SHEET THAT GAVE TO HIM PRIOR THAT,THEN WE WILL FAX ALL COPY OF D/C SHEET TO SNF
--- NOTE | 2017-02-28 12:15 | NUR ---
TAKE PATIENT DOWN VIA W/C WITH HER BELONGING CONDITION STABLE NO AGITATION OR PAIN
== END 2017-02-28 12:12 | DRG 154 ==
LOC: ER 04:58 → TELE 06:00 → MED 02-24 19:00
PROVIDERS: ADMIT Internal Medicine; ATTEND Internal Medicine
DX: S02.2XXA Fracture of nasal bones, initial encounter for closed fracture (principal); N17.0 Acute kidney failure with tubular necrosis; G93.40 Encephalopathy, unspecified; F03.91 Unspecified dementia, unspecified severity, with behavioral disturbance; F33.2 Major depressive disorder, recurrent severe without psychotic features; R55 Syncope and collapse; W18.30XA Fall on same level, unspecified, initial encounter; Y93.9 Activity, unspecified; Z95.0 Presence of cardiac pacemaker; I10 Essential (primary) hypertension; E11.9 Type 2 diabetes mellitus without complications; E86.9 Volume depletion, unspecified; I25.5 Ischemic cardiomyopathy; I27.2 Other secondary pulmonary hypertension; I34.0 Nonrheumatic mitral (valve) insufficiency; F03.90 Unspecified dementia, unspecified severity, without behavioral disturbance, psychotic disturbance, mood disturbance, and anxiety; Z88.2 Allergy status to sulfonamides; S00.12XA Contusion of left eyelid and periocular area, initial encounter; S00.11XA Contusion of right eyelid and periocular area, initial encounter; Y92.002 Bathroom of unspecified non-institutional (private) residence as the place of occurrence of the external cause; Y99.9 Unspecified external cause status; R04.0 Epistaxis; I36.1 Nonrheumatic tricuspid (valve) insufficiency; F39 Unspecified mood [affective] disorder
CPT/HCPCS: 36415; 70030-TC; 70450; 70486; 71010; 72125; 83735; 84100; 84443; 85025; 85730; 86850; 86900; 86901; 90715; 93005; 93307; 93880; 97001; 97003; 97116; 97530; A4217; A4663; J1630; J2405; J3486; J7030